=== PATIENT | male | born 1945 | race Caucasian/White ===

== ENCOUNTER → 2022-11-08 13:30 | Outpatient (BNVA) | payer MEDICARE, MEDICAID, SELFPAY | PROVIDERS: Visit Provider Nurse Practitioner Family | DX: R39.12 Poor urinary stream (principal); R39.14 Feeling of incomplete bladder emptying; R39.9 Unspecified symptoms and signs involving the genitourinary system; Z79.899 Other long term (current) drug therapy | CPT/HCPCS: 51798; 99202 ==

== ENCOUNTER 2022-11-18 13:43 | Outpatient (REF) | payer MEDICARE, MEDICAID, SELFPAY | END 2022-11-18 13:44 | disposition home or self-care (01) | LOC: HO.HMGCLDS 13:43 | PROVIDERS: PCP Nurse Practitioner Community Health; Visit Provider Nurse Practitioner Family | DX: Z12.5 Encounter for screening for malignant neoplasm of prostate (principal); N40.0 Benign prostatic hyperplasia without lower urinary tract symptoms | CPT/HCPCS: 36415; 84153 ==

== ENCOUNTER 2023-01-06 13:48 | Outpatient (REF) | payer MEDICARE, MEDICAID, SELFPAY ==
--- NOTE | ~2023-01-06 | US_ITS ---
EXAMINATION: US PELVIS LIMITED (BLADDER) CLINICAL INFORMATION: Feeling of incomplete bladder emptying. COMPARISON: None available. TECHNIQUE: Real-time imaging of the bladder. FINDINGS: BLADDER: Well distended and normal. Prevoid bladder volume is 237 mL. Postvoid bladder volume was not obtained. OTHER: Prostate dimensions are 3.7 x 3.6 x 3.8 cm (volume 25.9 mL). US/US bladder IMPRESSION: Unremarkable examination.
== END 2023-01-06 13:49 | disposition home or self-care (01) ==
LOC: HO.HMGCX 13:48
PROVIDERS: PCP Nurse Practitioner Community Health; Visit Provider Nurse Practitioner Family
DX: Z13.89 Encounter for screening for other disorder (principal)
CPT/HCPCS: 76857

== ENCOUNTER 2023-01-06 14:40 | Outpatient (AMB) | payer MEDICARE, MEDICAID, SELFPAY ==
[2023-01-06 14:41] VITALS: BP 160/110; PULSE 64; TEMP 36.2; O2SAT 95
--- NOTE | 2023-01-06 14:41 | MHC.OFFWIV ---
Intake Vital Signs 01/06/23 14:41 BP 160/110 H Blood Pressure Location Lt brachial Position Sitting Pulse 64 Pulse Source Pulse Oximeter Temp 97.2 F Pulse Oximetry (%) 95 Oxygen Delivery Method Room Air Intake Visit Reasons: EP, Weakness Intake Note: Patient here for weakness. Allergies No Known Allergies Allergy (Verified 11/08/22 14:16) HPI HPI Comments History of Present Illness Details This is a 77-year-old male who presents to the office today for sick visit. Patient was at ultrasound when he felt as though he was going to have diarrhea. He went to the bathroom and he suddenly became diaphoretic, dizzy, and lightheaded. He was brought to the walk-in clinic for further evaluation. Upon my evaluation, patient is nauseous and actively vomiting. He reports having off and on chest pain and shortness of breath. Patient has positive exposure to COVID. 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 Essential hypertension Gastroesophageal reflux disease Hyperlipidemia Idiopathic gout Impairment of cognitive function Stage 2 chronic kidney disease Type 1 diabetes mellitus without complication, with long-term current use of insulin Vitamin B12 deficiency Surgical History History of cholecystectomy History of prostate surgery Review of Systems Const All systems reviewed & are unremarkable except as noted in HPI and below Reports no additional complaints Eyes Reports no additional complaints ENT Reports no additional complaints Card Reports no additional complaints Resp Reports no additional complaints GI Reports no additional complaints Reports no additional complaints Musc Reports no additional complaints Skin/Breast Reports system reviewed and no additional complaints, except as documented Neuro Reports no additional complaints Psych Reports no additional complaints Endo Reports no additional complaints Blaine/Lymph Reports no additional complaints Aller/Immun Reports no additional complaints Physical Exam Vital Signs: Last Vital Signs Temp 97.2 F 01/06/23 14:41 Pulse 64 01/06/23 14:41 BP 160/110 H 01/06/23 14:41 Pulse Ox 95 01/06/23 14:41 Oxygen Delivery Method Room Air 01/06/23 14:41 Const General: cooperative, well developed, acute distress, diaphoretic and ill appearing HEENT Head: Yes normal to inspection Ears: hearing grossly normal bilaterally General nose exam: Normal external nose present Face and sinus: Yes normal facial exam Mouth: Normal oral and palatal mucosa present Eyes General: appearance normal, both eyes and all related structures Pupils: Equal, round and reactive pupils present EOM: EOMs intact bilaterally Resp Effort & Inspection: normal respiratory effort and no respiratory distress Auscultation: clear to auscultation bilaterally Cardio Rate: regular rate Rhythm: regular rhythm Heart sounds: no gallops, no murmurs and no rubs Peripheral pulses: Peripheral pulses 2+ throughout GI Other: Patient nauseous and actively vomiting but abdomen is soft, nontender, and nondistended. Inspection: No distended Palpation (GI): Soft to palpation and nontender Auscultation: normal bowel sounds Skin General skin exam: no rashes or lesions noted Neuro Other: Patient appears to have some slurred/garbled speech, unclear if this is patient's baseline. Cranial nerves: Yes CN's II-XII intact bilaterally and Yes Equal, round and reactive pupils present Gait exam (Neuro): Normal gait present Motor exam (neuro): 5/5 motor strength present throughout Extrem General: Yes normal to inspection, Yes full ROM and Yes no clubbing, cyanosis or edema Psych Appearance: grossly normal Mental Status: mental status grossly normal Assessment & Plan Assessment & Plan (1) Weakness: Code(s): R53.1 - Weakness Plan: This is a 77-year-old male who was brought to the walk-in clinic from [facility] due to lightheadedness/dizziness, diaphoresis, and presyncope. Upon arrival to the walk-in clinic, he is nauseous and actively vomiting. Patient is extremely ill-appearing, pale, and diaphoretic. He reports on and off chest pain. He also appears to have some slurred speech but unable to tell if this is patient's baseline. Unable to obtain EKG as patient is unable to lay down. Differential diagnosis is broad but includes ACS versus CVA versus COVID/flu versus viral illness versus sepsis/infection. Ambulance was called to take patient to the emergency room for further evaluation and management. Coding Level of Care Code Est Pt Level 3 (87816) Diagnoses Weakness R53.1
== END 2023-01-06 15:09 | disposition home or self-care (01) ==
PROVIDERS: PCP Nurse Practitioner Community Health; Visit Provider Physician Assistant Medical
DX: R53.1 Weakness (principal)
CPT/HCPCS: 99213

== ENCOUNTER 2023-01-06 15:19 | Emergency (ER) | payer MEDICARE, MEDICAID, SELFPAY ==
--- NOTE | 2023-01-06 | ECG_ITS ---
Test Reason : HYPERTENSION Blood Pressure : / mmHG Vent. Rate : 057 BPM Atrial Rate : 057 BPM P-R Int : 212 ms QRS Dur : 112 ms QT Int : 488 ms P-R-T Axes : -10 080 033 degrees QTc Int : 474 ms Sinus bradycardia with 1st degree A-V block Incomplete left bundle branch block Borderline ECG No previous ECGs available Referred By: Generic ED Physician Electronically Signed By:BLANCA CRAIG
--- NOTE | ~2023-01-06 | XR_ITS ---
EXAMINATION: XR CHEST CLINICAL INFORMATION: Shortness of breath COMPARISON: None available. TECHNIQUE: Frontal view of the chest was obtained. FINDINGS: Evidence of previous cardiac surgery. Size mildly enlarged. Expiratory technique accentuates lung markings. No overt CHF allowing for technique. No major zones of airspace disease or focal infiltrate. No pleural disease or ectopic air. XR/XR chest 1V IMPRESSION: No acute pulmonary disease. Mild cardiomegaly.
[2023-01-06 15:27] VITALS: BP 186/80; BP 220/110; PULSE 57; PULSE 58; RESP 14; TEMP 36.6; O2SAT 95; O2SAT 96; BMI 27.1
[2023-01-06 15:46] LABS: Glucose, Whole Blood 130 mg/dL (60-115)
--- NOTE | 2023-01-06 15:47 | ED_ITS ---
HPI - Syncope General Chief Complaint: Altered Mental Status Stated Complaint: vomiting,slight slurred speech,Abd pain, Time Seen by Provider: 01/06/23 15:37 Source: patient Mode of arrival: EMS Limitations: no limitations History of Present Illness HPI narrative: 77-year-old male with history of anxiety, BPH with lower urinary tract symptoms, constipation, coronary artery disease status post coronary bypass gra ft, angina, developmental disability, diabetes, hypertension, GERD, hyperlipidemia, gout, stage 2 chronic kidney disease, vitamin B12 deficiency who presents emergency department for evaluation of near syncopal episode that occurred while he was getting a bladder scan. The patient states that he has difficulty urinating any went to his doctor's office for a bladder scan. He states that he had prostate surgery and since that time he has had difficulty urinating. He states that during the scan while they were pushing on his bladder he felt lightheaded , dizzy and felt as he was going to have diarrhea. He states that he went to the bathroom, his lightheadedness and dizziness felt worse. He states he had nausea had 1 episode of vomiting. I did review the walk-in clinic note which concurs with the patient's description of events. Apparently after the patient became diaphoretic dizzy an d lightheaded after using the bathroom, he was brought over to the walk-in clinic side of the office for evaluation. While he was being evaluated, the patient had nausea was actively vomiting. Reported having chest pain shortness of breath. He also reported being exposed to COVID positive patient. Related Data Home Medications Medication Instructions Recorded Confirmed amlodipine 2.5 mg tablet 2.5 mg PO [facility] 11/08/22 atorvastatin 40 mg tablet 40 mg PO DAILY 11/08/22 cyanocobalamin (vitamin B-12) 1,000 mcg PO DAILY 11/08/22 1,000 mcg tablet (Vitamin B-12) escitalopram oxalate 20 mg tablet 20 mg PO DAILY 11/08/22 finasteride 5 mg tablet 5 mg PO DAILY 11/08/22 isosorbide mononitrate 120 mg 120 mg PO DAILY 11/08/22 tablet,extended release 24 hr lisinopril 40 mg tablet 40 mg PO DAILY 11/08/22 metformin 500 mg tablet 500 mg PO BID 11/08/22 metoprolol succinate 200 mg 200 mg PO DAILY 11/08/22 tablet,extended release 24 hr nitroglycerin 0.4 mg sublingual 0.4 mg sublingual DIRECTED 11/08/22 tablet angina omeprazole 40 mg capsule,delayed 40 mg PO DAILY 11/08/22 release Previous Rx's Medication Instructions Recorded alfuzosin 10 mg tablet,extended 10 mg PO BEDTIME 30 days #30 tabs 12/08/22 release 24 hr Allergies Allergy/AdvReac Type Severity Reaction Status Date / Time No Known Allergies Allergy Verified 11/08/22 14:16 Review of Systems Review of Systems: Yes all other systems are reviewed and are negative [facility] Past Medical History Medical History Anxiety Benign prostatic hyperplasia with lower urinary tract symptoms Constipation 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 Essential hypertension Gastroesophageal reflux disease Hyperlipidemia Idiopathic gout Impairment of cognitive function Stage 2 chronic kidney disease Type 1 diabetes mellitus without complication, with long-term current use of insulin Vitamin B12 deficiency Surgical History History of cholecystectomy History of prostate surgery Social History Social History Alcohol intake: never Smoked in Last 30 Days: No Use of substances other than those prescribed or required for medical reasons: No Advance Directives: No Advance Directives Information Provided: No Physical Exam Vital Signs: Vital Signs: Last Vital Signs Temp 98 F 01/06/23 16:38 Pulse 55 01/06/23 17:18 Resp 16 01/06/23 17:18 BP 151/72 H 01/06/23 17:18 Pulse Ox 95 01/06/23 17:18 O2 Del Method Room Air 01/06/23 17:18 BMI result Body Mass Index 27.1 Medications Administered Discontinued Medications Generic Name Dose Route Start Last Admin Trade Name Freq PRN Reason Stop Dose Admin Lidocaine HCl 10 ml 01/06/23 17:07 01/06/23 17:21 Lidocaine Hcl 2 % Urojet 10 Ml Jel.Pf.Maryjane TOPICAL 01/06/23 17:08 10 ml ONCE ONE Administration Medical Decision Making Medical Decision Making MDM Narrative: 77-year-old male with history of anxiety, BPH with lower urinary tract symptoms, constipation, coronary artery disease status post coronary bypass graft, angina, developmental disability, diabetes, hypertension, GERD, hyperlipidemia, gout, stage 2 chronic kidney disease, vitamin B12 deficiency who presents emergency department for evaluation of near syncopal episode, chest pain, shortness of breath, diaphoresis, nausea and vomit that occurred while he was having his bladder scan at his doctor's office. Vital signs revealed elevated BP 186/80, bradycardia heart rate 57, otherwise unremarkable. Physical examination was normal. I ordered a CBC, CMP, COVID-19, PT/INR, troponin, urinalysis, chest x-ray one view, EKG, bladder scan. 16:11: Patient's bladder scan revealed 584 cc of urine. Patient will attempt a voiding we will check postvoid residual and if needed , Mejias catheter will be inserted. 17:48: Mejias catheter was inserted the patient drained approximately 500 cc of yellow urine. The patient most likely had a near syncopal episode secondary to putting stress on his bladder from the bladder scan done in the office. Patient's laboratory evaluation did reveal an elevated WBC . Patient's urinalysis was significant for blood but not a urinary tract infection. Patient is on finasteride. At this time, I think that the patient can be discharged home with a Mejias catheter with follow-up with our on-call urologist. Differential Diagnosis Differential Diagnoses: The differential diagnosis associated with the presentation includes Differential diagnosis includes but is not limited to vasovagal syncope, cardiac arrhythmia, myocardial infarction, myocardial ischemia, urinary retention, urinary tract infection, COVID-19 infection, pneumonia Admission/Observation Consideration of admission/observation: Escalation of care including admission/observation considered Lab Data MDM Lab Attestation statement: I reviewed the patient's lab results. My interpretation patient's laboratory evaluation is as follows: WBC elevated 12,400, anemia with an H&H of of 13.8 and 39.4. PT/INR were normal. Glucose elevated 141. High sensitive troponin I was detectable at 18 but not elevated. Urinalysis revealed 2+ blood, negative nitrates, trace leukocyte esterase. Urine microscopic revealed greater than 20 RBCs, 0-5 WBCs, 0-2 squamous cells no bacteria-no evidence for urinary tract infection 01/06/23 16:27 01/06/23 16:27 Labs: Lab Results 01/06/23 01/06/23 01/06/23 Range/Units 15:31 16:27 16:27 WBC 12.4 H (4.8-10.8) X10*3/uL RBC 4.51 L (4.60-5.80) X10*6/uL Hgb 13.8 L (14.0-18.0) g/dl Hct 39.4 L (42.0-52.0) % MCV 87.4 (80.0-98.0) fL MCH 30.6 (27.0-33.0) pg MCHC 35.0 (31.0-36.0) g/dl RDW 13.1 (11.0-16.0) % Plt Count 200 (160-400) X10*3/uL MPV 11.0 (9.4-12.4) fL Immature Gran % (Auto) 0.6 H (0.0-0.4) % Neut % (Auto) 80.5 H (45-73) % Lymph % (Auto) 10.1 L (20-40) % [place] % (Auto) 6.0 (2-11) % Eos % (Auto) 2.3 (0-4) % Baso % (Auto) 0.5 (0-2) % Lymph # (Auto) 1.3 (1.2-4.9) X10*3/uL [place] # (Auto) 0.7 (0.1-1.2) X10*3/uL Eos # (Auto) 0.3 (0.0-0.4) X10*3/uL Baso # (Auto) 0.1 (0.0-0.2) X10*3/uL Abs Immat Gran (auto) 0.08 H (0.00-0.03) X10*3/uL Absolute Neuts (auto) 10.0 H (2.0-8.3) x10*3/uL Absolute Nucleated RBC 0.000 (0.0-0.012) X10*3/uL Nucleated RBC % (auto) 0.0 (0.0-0.2) /100WBC PT 11.8 (11.1-13.3) SEC INR 1.0 (0.9-1.1) Sodium (135-145) mmol/L Potassium (3.3-5.1) mmol/L Chloride (96-108) mmol/L Carbon Dioxide (22-29) mmol/L Anion Gap (12-20) BUN (9-16) mg/dL Creatinine (0.5-1.4) mg/dL Estim Creat Clear Calc Estimated GFR POC Glucose 130 H (60-115) mg/dL Random Glucose (60-115) mg/dL Calcium (8.4-10.2) mg/dL Total Bilirubin (0.0-1.0) mg/dL AST (5-37) U/L ALT (0-40) U/L Alkaline Phosphatase (39-117) U/L Troponin I High Sens (<3.5-35.0) ng/L Total Protein (6.5-8.0) g/dL Albumin (3.5-5.0) g/dL Urine Color Urine Appearance Urine pH (5.0-9.0) Ur Specific [place] (1.005-1.025) Urine Protein (Neg-Trace) mg/dL Urine Glucose (UA) (Negative) mg/dL Urine Ketones (Negative) mg/dL Urine Blood (Negative) Urine Nitrite (Negative) Ur Leukocyte Esterase (Negative) Urine RBC (0-2) /HPF Urine WBC (0-5) /HPF Ur Squamous Epith Cells (0-2) /HPF Urine Bacteria (None Seen) Hyaline Casts (0-2) /LPF COVID-19 (FRANCK) (Negative) COVID-19 Clin Com 01/06/23 01/06/23 01/06/23 Range/Units 16:27 16:27 16:27 WBC (4.8-10.8) X10*3/uL RBC (4.60-5.80) X10*6/uL Hgb (14.0-18.0) g/dl Hct (42.0-52.0) % MCV (80.0-98.0) fL MCH (27.0-33.0) pg MCHC (31.0-36.0) g/dl RDW (11.0-16.0) % Plt Count (160-400) X10*3/uL MPV (9.4-12.4) fL Immature Gran % (Auto) (0.0-0.4) % Neut % (Auto) (45-73) % Lymph % (Auto) (20-40) % [place] % (Auto) (2-11) % Eos % (Auto) (0-4) % Baso % (Auto) (0-2) % Lymph # (Auto) (1.2-4.9) X10*3/uL [place] # (Auto) (0.1-1.2) X10*3/uL Eos # (Auto) (0.0-0.4) X10*3/uL Baso # (Auto) (0.0-0.2) X10*3/uL Abs Immat Gran (auto) (0.00-0.03) X10*3/uL Absolute Neuts (auto) (2.0-8.3) x10*3/uL Absolute Nucleated RBC (0.0-0.012) X10*3/uL Nucleated RBC % (auto) (0.0-0.2) /100WBC PT (11.1-13.3) SEC INR (0.9-1.1) Sodium 137 (135-145) mmol/L Potassium 4.5 (3.3-5.1) mmol/L Chloride 100 (96-108) mmol/L Carbon Dioxide 28 (22-29) mmol/L Anion Gap 14 (12-20) BUN 16 (9-16) mg/dL Creatinine 1.15 (0.5-1.4) mg/dL Estim Creat Clear Calc 60.9 Estimated GFR > 60 POC Glucose (60-115) mg/dL Random Glucose 141 H (60-115) mg/dL Calcium 10.2 (8.4-10.2) mg/dL Total Bilirubin 0.7 (0.0-1.0) mg/dL AST 14 (5-37) U/L ALT 20 (0-40) U/L Alkaline Phosphatase 71 (39-117) U/L Troponin I High Sens 18.0 (<3.5-35.0) ng/L Total Protein 7.8 (6.5-8.0) g/dL Albumin 4.5 (3.5-5.0) g/dL Urine Color Urine Appearance Urine pH (5.0-9.0) Ur Specific [place] (1.005-1.025) Urine Protein (Neg-Trace) mg/dL Urine Glucose (UA) (Negative) mg/dL Urine Ketones (Negative) mg/dL Urine Blood (Negative) Urine Nitrite (Negative) Ur Leukocyte Esterase (Negative) Urine RBC (0-2) /HPF Urine WBC (0-5) /HPF Ur Squamous Epith Cells (0-2) /HPF Urine Bacteria (None Seen) Hyaline Casts (0-2) /LPF COVID-19 (FRANCK) Negative (Negative) COVID-19 Clin Com See Note 01/06/23 Range/Units 16:27 WBC (4.8-10.8) X10*3/uL RBC (4.60-5.80) X10*6/uL Hgb (14.0-18.0) g/dl Hct (42.0-52.0) % MCV (80.0-98.0) fL MCH (27.0-33.0) pg MCHC (31.0-36.0) g/dl RDW (11.0-16.0) % Plt Count (160-400) X10*3/uL MPV (9.4-12.4) fL Immature Gran % (Auto) (0.0-0.4) % Neut % (Auto) (45-73) % Lymph % (Auto) (20-40) % [place] % (Auto) (2-11) % Eos % (Auto) (0-4) % Baso % (Auto) (0-2) % Lymph # (Auto) (1.2-4.9) X10*3/uL [place] # (Auto) (0.1-1.2) X10*3/uL Eos # (Auto) (0.0-0.4) X10*3/uL Baso # (Auto) (0.0-0.2) X10*3/uL Abs Immat Gran (auto) (0.00-0.03) X10*3/uL Absolute Neuts (auto) (2.0-8.3) x10*3/uL Absolute Nucleated RBC (0.0-0.012) X10*3/uL Nucleated RBC % (auto) (0.0-0.2) /100WBC PT (11.1-13.3) SEC INR (0.9-1.1) Sodium (135-145) mmol/L Potassium (3.3-5.1) mmol/L Chloride (96-108) mmol/L Carbon Dioxide (22-29) mmol/L Anion Gap (12-20) BUN (9-16) mg/dL Creatinine (0.5-1.4) mg/dL Estim Creat Clear Calc Estimated GFR POC Glucose (60-115) mg/dL Random Glucose (60-115) mg/dL Calcium (8.4-10.2) mg/dL Total Bilirubin (0.0-1.0) mg/dL AST (5-37) U/L ALT (0-40) U/L Alkaline Phosphatase (39-117) U/L Troponin I High Sens (<3.5-35.0) ng/L Total Protein (6.5-8.0) g/dL Albumin (3.5-5.0) g/dL Urine Color Yellow Urine Appearance Clear Urine pH 7.0 (5.0-9.0) Ur Specific [place] 1.010 (1.005-1.025) Urine Protein Trace (Neg-Trace) mg/dL Urine Glucose (UA) Negative (Negative) mg/dL Urine Ketones Negative (Negative) mg/dL Urine Blood Moderate (2+) H (Negative) Urine Nitrite Negative (Negative) Ur Leukocyte Esterase Trace H (Negative) Urine RBC >20 H (0-2) /HPF Urine WBC 0-5 (0-5) /HPF Ur Squamous Epith Cells 0-2 (0-2) /HPF Urine Bacteria None Seen (None Seen) Hyaline Casts 0-2 (0-2) /LPF COVID-19 ([facility]ANCK) (Negative) COVID-19 Clin Com Independent Interpretation I performed an independent interpretation of an: EKG Interpretation: My independent interpretation patient's 12 EKG done at 16:11 hours is as follows: Sinus bradycardia with a rate of 57 with a first-degree AV block with MO interval of 212 milliseconds, Q-wave in the 3 an EPS-these are small, Q-wave in V1, incomplete left bundle-branch block. My independent interpretation the patient's chest x-ray is as follows: No acute disease. Radiology Impression Discussion of test interpretation with radiology: I have reviewed the radiologist's reading. Radiologist Impression: XR chest 1V IMPRESSION: No acute pulmonary disease. Mild cardiomegaly. Dictated By:Ron Mcgrath MD External Record Review External record reviewed: Office record (Urgent care note) Discharge Plan Discharge Clinical Impression: Near syncope, Acute urinary retention, Nausea & vomiting Patient Disposition: Home, Self-Care Additional Instructions: Your bladder was full, you had greater than 500 cc of urine in her bladder on the bladder scan. The Mejias catheter drained yellow urine, the urine test did not reveal any evidence for infection at this time. Your urine will be sent for a culture and if you grow bacteria out of your urine that your doctor/urologist will need to determine if you need antibiotics. I am sending you home with a Mejias catheter in place, you need to follow-up with our urologist in 4-7 days for re-evaluation and to see if the Mejias catheter can be removed. Your symptoms at the urgent care office were probably caused by too much pressure on your bladder from the bladder scan causing you to have your vasovagal syncope (you almost fainted) Continue taking medications as prescribed by your doctor Follow the Mejias catheter instructions. Follow-up with our on-call urologist in 4-7 days to see if the Mejias catheter can be removed. Please return to the emergency department if your symptoms get worse or if you develop any symptoms that are concerning to you. Prescriptions: No Action alfuzosin 10 mg tablet extended release 24 hr 10 mg PO BEDTIME 30 Days Qty: 30 1RF Rx Instructions: Take before bedtime amlodipine 2.5 mg tablet 2.5 mg PO QAM atorvastatin 40 mg tablet 40 mg PO DAILY cyanocobalamin (vitamin B-12) [Vitamin B-12] 1,000 mcg tablet 1,000 mcg PO DAILY escitalopram oxalate 20 mg tablet 20 mg PO DAILY finasteride 5 mg tablet 5 mg PO DAILY isosorbide mononitrate 120 mg tablet extended release 24 hr 120 mg PO DAILY lisinopril 40 mg tablet 40 mg PO DAILY metformin 500 mg tablet 500 mg PO BID metoprolol succinate 200 mg tablet extended release 24 hr 200 mg PO DAILY nitroglycerin 0.4 mg tablet, sublingual 0.4 mg sublingual DIRECTED omeprazole 40 mg capsule,delayed release(DR/EC) 40 mg PO DAILY Referrals: Donovan Tellez MD [Physician] - 1 week (Urinary retention, Mejias catheter placed in ED)
--- NOTE | 2023-01-06 16:09 | PC.NURSE ---
Carole- sister [phone]
[2023-01-06 16:30] VITALS: BP 170/82; PULSE 56
[2023-01-06 16:32] VITALS: BP 146/74; PULSE 57
[2023-01-06 16:32] LABS: MANUAL DIFF FLAG NO
[2023-01-06 16:33] VITALS: BP 145/82; PULSE 57
[2023-01-06 16:38] VITALS: BP 170/82; PULSE 56; RESP 20; TEMP 36.6; O2SAT 96
[2023-01-06 16:40] LABS: Appearance Urine Clear; Color Urine Yellow; Glucose Urine UA Negative (Negative); Leukocyte Esterase Urine Trace (Negative); Nitrite Urine Negative (Negative); UMIC TRIGGER UACC YES; Urine Blood Moderate (2+) (Negative); Urine Ketones Negative (Negative); Urine Protein Trace mg/dL (Neg-Trace)
[2023-01-06 16:43] LABS: Bacteria Urine None Seen (None Seen); Hyaline Casts Urine 0-2 /LPF (0-2); RBC Urine >20 /HPF (0-2); Squamous Epithelial Cell Urine 0-2 /HPF (0-2); WBC Urine 0-5 /HPF (0-5)
[2023-01-06 16:47] LABS: Basophils Absolute Auto 0.1 X10*3/uL (0.0-0.2); Basophils Percent Auto 0.5 % (0-2); Eosinophils Absolute Auto 0.3 X10*3/uL (0.0-0.4); Eosinophils Percent Auto 2.3 % (0-4); Hematocrit 39.4 % (42.0-52.0); Hemoglobin 13.8 g/dl (14.0-18.0); Imm Gran Abs Auto 0.08 X10*3/uL (0.00-0.03); Imm Gran Pct Auto 0.6 % (0.0-0.4); Lymphocytes Absolute Auto 1.3 X10*3/uL (1.2-4.9); Lymphocytes Percent Auto 10.1 % (20-40); Mean Corpuscular Hemoglobin 30.6 pg (27.0-33.0); Mean Corpuscular Volume 87.4 fL (80.0-98.0); Monocytes Absolute Auto 0.7 X10*3/uL (0.1-1.2); Neutrophils Percent Auto 80.5 % (45-73); Platelet Count 200 X10*3/uL (160-400); Red Blood Count 4.51 X10*6/uL (4.60-5.80); Red Cell Distribution Width 13.1 % (11.0-16.0); White Blood Count 12.4 X10*3/uL (4.8-10.8)
[2023-01-06 16:49] LABS: COVID-19 Test Negative (Negative); IDNOW Serial# 08D9AD1C
--- OUTSIDE RECORDS SUMMARY | 2023-01-06 16:50 | XMS_ITS | Continuity of Care Document ---
Author Name Unknown Organization [facility] Address [address] [address]- Care Team Providers Care Wool Washer Name Role Phone Radha SCOTT, Mendez Mercedes Primary Care Physician [phone] [place] [facility]02[place] - 01/01/21 [facility] [address] [address]- Attending Physician: Mary Lee Admitting Physician: Admtr [id number] Referring Physician: Admtr, Ar8 Allergies, Adverse Reactions, Alerts No Known Medication Allergies
--- OUTSIDE RECORDS SUMMARY | 2023-01-06 16:50 | XMS_ITS | Continuity of Care Document ---
Author Name Unknown Organization [facility] Address [address] [place] [id number]- Care Team Providers Care Loader [employer] Dies Name Role Phone Not on Staff, PCP Primary Care Physician Unavail able Encounter [facility] Date(s): 05/04/20 - 06/03/[address] [address]-
--- OUTSIDE RECORDS SUMMARY | 2023-01-06 16:50 | XMS_ITS | Continuity of Care Document ---
Author Name Unknown Organization [facility] Address [address] [place] [id number]- Care Team Providers Care Tension Worker Name Role Phone Radha SCOTT, Mendez Mercedes Primary Care Physician Encounter [facility] R [id number] Date(s): 07/13/20 - 07/20/[address] [address]- Attending Physician: Jacky Finnegan MD Admitting Physician: Jacky Finnegan MD Referring Physician: Jacky Finnegan MD Allergies, Adverse Reactions, Alerts No Known Medication Allergies
--- OUTSIDE RECORDS SUMMARY | 2023-01-06 16:50 | XMS_ITS | Continuity of Care Document ---
Author Name Unknown Organization [facility] Address [address] [address]- Care Team Providers Care Rifle Case Repairer Name Role Phone Radha SCOTT, Mendez Mercedes Primary Care Physician Encounter [facility] Date(s): 11/03/20 - 11/10/20 [facility] [address] [address]- Attending Physician: Jacky Finnegan MD Admitting Physician: Jacky Finnegan MD Referring Physician: Mendez Garcia NP Allergies, Adverse Reactions, Alerts No Known Medication Allergies Medications No Known Medications Vital Signs Most recent to oldest [Reference Range]: 1 Weight 97 kg (11/03/20 2:07 PM) Oxygen Saturation [94-100 %] 100 % (11/03/20 2:07 PM) Pulse Rate [55-90 bpm] 59 bpm (11/03/20 2:07 PM) Blood Pressure [90-138/55-84 mm Hg] 151/ 71mm Hg *H* (11/03/20 2:07 PM) Mode of Delivery (Oxygen) Room air (11/03/20 2:07 PM) Blood pressure sites Arm, left (11/03/20 2:07 PM) Weight Obtained Via Standing scale (11/03/20 2:07 PM)
--- OUTSIDE RECORDS SUMMARY | 2023-01-06 16:50 | XMS_ITS | Continuity of Care Document ---
Author Name Unknown Organization [facility] Address [address] [address]- Care Team Providers Care Seed Analyst Name Role Phone Radha SCOTT, Mendez Mercedes Primary Care Physician [phone] En[place] [facility] [place] [id number] Date(s): 08/26/20 - 09/02/20 [facility] [address] [address]- Attending Physician: Jacky Finnegan MD Admitting Physician: Jacky Finnegan MD Referring Physician: Mendez Garcia NP Allergies, Adverse Reactions, Alerts No Known Medication Allergies Medications No Known Medications Vital Signs Most recent to oldest [Reference Range]: 1 Weight 96 kg (08/26/20 11:44 AM) Oxygen Saturation [94-100 %] 98 % (08/26/20 11:44 AM) Pulse Rate [55-90 bpm] 60 bpm (08/26/20 11:44 AM) Blood Pressure [90-138/55-84 mm Hg] 160/ 80mm Hg *H* (08/26/20 11:44 AM) Mode of Delivery (Oxygen) Room air (08/26/20 11:44 AM) Blood pressure sites Arm, left (08/26/20 11:44 AM) Weight Obtained Via Standing scale (08/26/20 11:44 AM)
--- OUTSIDE RECORDS SUMMARY | 2023-01-06 16:50 | XMS_ITS | Continuity of Care Document ---
Author Name Unknown Organization [facility] Address [address] [address]- Care Team Providers Care Utility Division Project Manager Name Role Phone Radha SCOTT, Mendez Mercedes Primary Care Physician Encounter [facility] [place] Date(s): 07/13/20 - 08/12/20 [id number] [address]- Attending Physician: Mary Lee Admitting Physician: Admtr Ar8 Referring Physician: Admtr, Ar8 Allergies, Adverse Reactions, Alerts No Known Medication Allergies
--- OUTSIDE RECORDS SUMMARY | 2023-01-06 16:50 | XMS_ITS | Continuity of Care Document ---
Author Name Unknown Organization [facility] Address [address] [place] [id number]- Care Team Providers Care Mason Apprentice Name Role Phone Radha SCOTT, Mendez Mercedes Primary Care Physician Encounter [facility] [place] ACCT R [id number] Date(s): 12/02/20 - 01/01/21 [facility] [address] [address]- Attending Physician: Mayr Lee Admitting Physician: Admtr Ar8 Referring Physician: Admtr, Ar8 Allergies, Adverse Reactions, Alerts No Known Medication Allergies
--- OUTSIDE RECORDS SUMMARY | 2023-01-06 16:50 | XMS_ITS | Continuity of Care Document ---
Author Name Unknown Organization [facility] Address [address] [place] [address]- Care Team Providers Care Camp Program Director Name Role Phone Radha SCOTT, Mendez Mercedes Primary Care Physician [place] [facility] [place]02/20 - 12/09/[address] [address]- Attending Physician: Jacky Finnegan MD Admitting Physician: Jacky Finnegan MD Referring Physician: Jacky Finnegan MD Allergies, Adverse Reactions, Alerts No Known Medication Allergies
--- OUTSIDE RECORDS SUMMARY | 2023-01-06 16:50 | XMS_ITS | Continuity of Care Document ---
Author Name Unknown Organization [facility] Address [address] [address]- Care Team Providers Care Fuel Management Handler Name Role Phone Radha SCOTT, Mendez Mercedes Primary Care Physician [phone] Encounter [facility] [place] [place] Date(s): 12/02/20 - 12/09/20 [facility] [address] [address]- Attending Physician: Jacky Finnegan MD Admitting Physician: Jacky Finnegan MD Referring Physician: Mendez Garcia NP Allergies, Adverse Reactions, Alerts No Known Medication Allergies Vital Signs Most recent to oldest [Reference Range]: 1 2 Weight 97.1 kg (12/02/20 4:18 PM) Oxygen Saturation [94-100 %] 96 % (12/02/20 4:18 PM) Pulse Rate [55-90 bpm] 69 bpm (12/02/20 4:18 PM) Blood Pressure [90-138/55-84 mm Hg] 159/ 81mm Hg *H* (12/02/20 4:19 PM) 167/85mm Hg *H* (12/02/20 4:18 PM) Mode of Delivery (Oxygen) Room air (12/02/20 4:18 PM) Blood pressure sites Arm, left (12/02/20 4:19 PM) Weight Obtained Via Standing scale (12/02/20 4:18 PM)
--- OUTSIDE RECORDS SUMMARY | 2023-01-06 16:50 | XMS_ITS | Continuity of Care Document ---
Author Name Unknown Organization [facility] Address [address] [place] [address]- Care Team Providers Care Package Center Supervisor Name Role Phone Radha SCOTT, Mendez Mercedes Primary Care Physician [phone] Encounter [facility] [place] ACCT R [id number] Date(s): 11/18/20 - 11/25/[address] [address]- Attending Physician: Jacky Finnegan MD Admitting Physician: Jacky Finnegan MD Referring Physician: Jacky Finnegan MD Allergies, Adverse Reactions, Alerts No Known Medication Allergies
[2023-01-06 16:52] LABS: Alanine Aminotransferase 20 U/L (0-40); Albumin Level 4.5 g/dL (3.5-5.0); Alkaline Phosphatase 71 U/L (39-117); Anion Gap 14 (12-20); Aspartate Amino Transferase 14 U/L (5-37); Bilirubin Total 0.7 mg/dL (0.0-1.0); Blood Urea Nitrogen 16 mg/dL (9-16); Calcium 10.2 mg/dL (8.4-10.2); Carbon Dioxide 28 mmol/L (22-29); Chloride 100 mmol/L (96-108); Creatinine Clr Calc Pharmacy 60.9; Estimated Glomerular Filt Rate > 60; Glucose Random 141 mg/dL (60-115); Potassium 4.5 mmol/L (3.3-5.1); Sodium 137 mmol/L (135-145); Total Protein 7.8 g/dL (6.5-8.0)
[2023-01-06 16:56] LABS: Prothrombin Time 11.8 SEC (11.1-13.3)
[2023-01-06 17:18] VITALS: BP 151/72; PULSE 55; RESP 16; O2SAT 95
[2023-01-06] MEDS: Lidocaine HCl 2 % Urojet 10 ML JEL.PF.APP TOPICAL (17:21)
--- NOTE | 2023-01-06 17:22 | PC.NURSE ---
unable to obtain murdock catheter at first attempt. MD Wells informed and request made for uro-jet. MD placed order. this RN used a 16Fr coude tip catheter and was able to place the murdock successfully. pt with some bloody output around meatus of penis. aware. pt immedistely had 800cc clear yellow uriine output with some small clots of blood. 30cc placed in balloon.
--- NOTE | 2023-01-06 17:26 | PC.NURSE ---
PCT Alcides bladder scanned pt for 584. pt able to urinate only approx 20cc of urine. informed MD Wells and murdock cath ordered and placed by this RN
--- NOTE | 2023-01-06 18:11 | PC.NURSE ---
pt changed over to leg bag and educated on use
--- NOTE | 2023-01-06 18:26 | PC.NURSE ---
called pts brother to come pick him up. d/c pt to waiting room to await brothers arrival
--- NOTE | 2023-01-09 12:23 | MHC.CM.PN ---
Late entry: received call from [facility]: they are unable to accept pt onto service d/t lack of dx for pt's urinary retention with subsequent need for a murdock catheter. Reviewed urology appt f/u this Monday w/[facility] - no change in acceptance. Call placed to pt's sister Carole: she states pt is unable to empty murdock d/c cognitive impairment: pt lives alone and has fire management technician through [facility] and an RN who comes once weekly. Carole contacted agency and they stated to her that they are not certified to care for murdock catheters. Carole states pt can maintain urinary hygiene with [employer] prompting but would not be able to empty the collection bag. CM offered to contact [facility] to explain that pt only requires assistance w/ emptying bag and not hygiene care - Carole states she will call and explain. Instructed Carole to call [facility] CM should she require additional assistance.
== END 2023-01-06 18:26 | disposition home or self-care (01) ==
PROVIDERS: Emergency Provider Emergency Medicine Emergency Medical Services; PCP Nurse Practitioner Community Health
DX: R33.9 Retention of urine, unspecified (principal); R30.0 Dysuria; I10 Essential (primary) hypertension; R00.1 Bradycardia, unspecified; R06.02 Shortness of breath; R47.81 Slurred speech; R10.2 Pelvic and perineal pain; Z20.822 Contact with and (suspected) exposure to COVID-19; Z20.828 Contact with and (suspected) exposure to other viral communicable diseases; Z79.899 Other long term (current) drug therapy
CPT/HCPCS: 36415; 51702; 51798; 71045; 76857; 80053; 81001; 82947; 84484; 85025; 85610; 87635; 93005; 99284; 99285

== ENCOUNTER 2023-01-11 09:32 | Outpatient (AMB) | payer MEDICARE, MEDICAID, SELFPAY ==
--- NOTE | 2023-01-11 10:02 | MHC.OFFVIS ---
Intake Intake Visit Reasons: Voiding trial/cysto/US(set) Intake Note: Patient is present for Cystoscopy With Voiding Trial Urology Med: Alfuzosin, Finasteride Antibiotic Allergy: None Blood Thinner: None Pharmacy: [facility] Disposable Cystoscope used during Procedure LOT#:[id number] EXP: 10/06/2024 PVR: Allergies No Known Allergies Allergy (Verified 01/11/23 10:03) HPI HPI Comments History of Present Illness Details Jason is a pleasant male. He is accompanied by his brother. He seen for the following urologic conditions - neurogenic bladder Current indwelling Mejias Cystoscopy today with some recurrence of bilateral impingement and last dilated bladder Recommendation for GreenLight laser prostate revision +suprapubic tube placement Neurogenic bladder Progressive Longstanding history of developmental delay Prior TURP a number of years ago [facility] Medical History Anxiety Benign prostatic hyperplasia with lower urinary tract symptoms Constipation Coronary artery disease involving coronary bypass graft of [place] heart with angina pectoris Developmental disability Diabetic renal disease Essential hypertension Gastroesophageal reflux disease Hyperlipidemia Idiopathic gout Impairment of cognitive function Stage 2 chronic kidney disease Type 1 diabetes mellitus without complication, with long-term current use of insulin Vitamin B12 deficiency Surgical History History of cholecystectomy History of prostate surgery Social History Alcohol intake: never Review of Systems Const Denies chills and Denies fever(s) Card Reports no additional complaints and Denies syncope Resp Denies cough GI Denies abdominal pain and Denies heartburn Reports as per HPI and Denies change in libido Neuro Denies syncope Psych Denies change in libido Endo Denies change in libido Physical Exam Const General: cooperative, healthy appearing, comfortable and no acute distress Orientation/consciousness: patient oriented x3 HEENT Face and sinus: Yes normal facial exam Mouth: moist mucous membranes Neck Neck: Yes normal visual inspection, Yes full ROM and Yes trachea midline Chest Chest palpation & inspection: normal inspection of the chest Resp Effort & Inspection: normal respiratory effort, able to speak in complete sentences and no respiratory distress GI Inspection: Yes normal to inspection Back/Spine/Pelvis Cervical Spine: normal cervical lordosis Thoracic/Lumbar Spine: thoracic and lumbar spine normal to inspection Skin General skin exam: no rashes or lesions noted Neuro General: patient oriented x3, gait normal, tone normal and moves all extremities Extrem General: Yes normal to inspection and Yes capillary refill normal Office Procedures Bladder/Catheter Procedure Details: 120 mls sterile water instilled into bladder via 16 fr coude cath, cath removed, pt tolerated removal well. urinal given to empty bladder. MA to PVR. Voiding trial failed- per DR Mercedes 16 fr coude cath with 10 ml balloon replaced with flip vlave, pt able to teach back use of valve, pt to have SP tube procedure booked. 50378-Pzqfjsvvrg of Bladder 05629-Gsktnw Bladder Catheter Procedure code (CPT) selection complete Cystoscopy Consent Discussed risk and benefit or proposed procedure with the patient. Information consent for procedure given to the patient. Discussed technical aspects, risks, benefits and alternatives in full. Addressed all of the patient's questions and concerns regarding the procedure. The patient demonstrated knowledge and understanding. They wish to proceed with this procedure. Preparation The patient was prepped in the usual manner. A staff development coordinator rn was present and in the room. Genitalia was prepped with betadine solution in a sterile manner. Lidocaine Jelly 2% was placed into the urethra and 16Fr flexible Olympus cystoscope was inserted into the meatus after adequate lubrication. Procedure Meatus circumcised Urethra anterior posterior urethra normal Prostatic Urethra recurrent bilateral lateral lobe impingement Bladder examination with retroflexion of cystoscope Bladder Orifices normal shape and position Bladder Capacity large Trabeculations grade 2 Cellule Formation yes Diverticulum Formation - Mucosal Erythema - Bladder Tumor - 63896-Pfkjxnchnq DISPOSABLE SCOPE URO-G FLEXIBLE SCOPE Procedure code (CPT) selection complete Office Meds lidocaine HCl Performing Provider: Donovan Tellez MD Administered by: Melissa Matt RN on 01/11/23 10:41 Dose Route Admin Location Lot Number Expiration Date NDC Project Hire 10 mL intra-urethral nitrofurantoin monohyd/m-cryst 100 mg Performing Provider: Donovan Tellez MD Administered by: Melissa Matt RN on 01/11/23 10:41 Dose Route Admin Location Lot Number Expiration Date ND Project Hire 100 mg PO naproxen Performing Provider: Donovan Tellez MD Administered by: Melissa Matt RN on 01/11/23 10:41 Dose Route Admin Location Lot Number Expiration Date NDC Project Hire 500 mg PO Assessment & Plan Assessment & Plan (1) Neurogenic urinary bladder disorder: Code(s): N31.9 - Neuromuscular dysfunction of bladder, unspecified Plan Risks, benefits and alternatives to therapy were discussed. These include but are not limited to infection, bleeding, damage to local organs and tissues, need for further interventions. Anesthetic risks regarding cardiac arrhythmia, blood clots, and potential mortality were discussed. The patient understands the typical recovery time and the outpatient nature of the procedure. After consideration of these risks the patient gives full informed consent and they wish to move ahead with the procedure. Cystoscopy with GreenLight laser prostatectomy and suprapubic tube placement Orders: Orders AMB Cystoscopy 01/11/23 R39.14 - Feeling of incomplete bladder emptying AMB Bladder/Catheter Procedure 01/11/23 R39.14 - Feeling of incomplete bladder emptying Patient Instructions: Imaging studies, laboratory and physical exam results were discussed and reviewed in detail. No major barriers to patient understanding were identified. An opportunity to ask questions regarding the treatment plan was provided. All questions were answered. The patient expressed understanding and agreement with the above treatment plan. The patient is aware they should contact our office by phone for worsening of their current condition or the appearance of new urologic symptoms. Compliance is encouraged with any medications and followup testing that is ordered. It is a privilege to participate in the urologic care of your patient. If you have any questions or concerns regarding treatment for the above conditions, or other urologic issues, please do not hesitate to contact me. The office telephone contact is [phone]. This note is constructed using voice recognition software. While every effort has been made to ensure accuracy director of hospitality errors may have been included. Yours sincerely, Dr Donovan Tellez MD, [facility] - Urology Providers of Expert, Compassionate Care for the Genitourinary System Coding Level of Care Code Est Pt Level 4 (80363) Diagnoses Neurogenic urinary bladder disorder N31.9 CPT Codes Bladder/Catheter Procedure - CPT: 52224-Gfokppbzvz of Bladder ([id number]) Bladder/Catheter Procedure - CPT: 57669-Dkabns Bladder Catheter ([id number]) Cystoscopy - CPT: 43967-Cycvunjvyn ([id number]) Cystoscopy - CPT: DISPOSABLE SCOPE URO-G FLEXIBLE SCOPE ([id number])
== END 2023-01-11 10:41 | disposition home or self-care (01) ==
PROVIDERS: PCP Nurse Practitioner Community Health; Visit Provider Urology
DX: N31.9 Neuromuscular dysfunction of bladder, unspecified (principal)
CPT/HCPCS: 51700; 52000; 99499

== ENCOUNTER → 2023-01-11 09:32 | Outpatient (BNVA) | payer MEDICARE, MEDICAID, SELFPAY | PROVIDERS: PCP Nurse Practitioner Community Health; Visit Provider Urology | DX: N31.9 Neuromuscular dysfunction of bladder, unspecified (principal) | CPT/HCPCS: 51700; 52000; C1747 ==

== ENCOUNTER 2023-01-26 11:05 | Outpatient (AMB) | payer MEDICARE, MEDICAID, SELFPAY ==
--- NOTE | 2023-01-26 11:05 | MHC.OFFVIS ---
Intake Intake Visit Reasons: discuss details of procedure call [phone] Intake Note: Patient is present for Telephone Urology Med: finasteride, alfuzosin Antibiotic Allergy: none Blood Thinner: none [facility]acy: [facility] Allergies No Known Allergies Allergy (Verified 01/26/23 11:07) HPI HPI Comments History of Present Illness Details Jason is a pleasant male. He is accompanied by his brother. He seen for the following urologic conditions - neurogenic bladder Telemedicine Evaluation 15 min Consultation [employer] Maryjane Video attempted Discussion with Carole who is his sister and healthcare proxy (telephone [phone]) Discussed procedure He may need short to medium term care and a facility to manage the catheter She will look into this Current indwelling Mejias Recommendation for GreenLight laser prostate revision + suprapubic tube placement Neurogenic bladder Progressive Longstanding history of developmental delay Prior TURP a number of years ago [facility] Medical History Constipation Vitamin B12 deficiency Anxiety Gastroesophageal reflux disease Idiopathic gout Benign prostatic hyperplasia with lower urinary tract symptoms Developmental disability Impairment of cognitive function Diabetic renal disease Stage 2 chronic kidney disease Hyperlipidemia Essential hypertension Type 1 diabetes mellitus without complication, with long-term current use of insulin Coronary artery disease involving coronary bypass graft of [place] heart with angina pectoris Surgical History History of prostate surgery History of cholecystectomy Social History Alcohol intake: never Review of Systems Const All systems reviewed & are unremarkable except as noted in HPI and below Reports no additional complaints Resp Reports no additional complaints GI Reports no additional complaints Reports as per HPI Musc Reports no additional complaints Physical Exam Telemedicine evaluation Appropriate responses Regular breathing rate and rhythm HEENT Head: Yes normal to inspection Ears: hearing grossly normal bilaterally Eyes General: appearance normal, both eyes and all related structures Neck Neck: Yes normal visual inspection Chest Chest palpation & inspection: normal inspection of the chest Resp Effort & Inspection: normal respiratory effort and able to speak in complete sentences Assessment & Plan Assessment & Plan (1) Neurogenic urinary bladder disorder: Code(s): N31.9 - Neuromuscular dysfunction of bladder, unspecified Plan Risks, benefits and alternatives to therapy were discussed. These include but are not limited to infection, bleeding, damage to local organs and tissues, need for further interventions. Anesthetic risks regarding cardiac arrhythmia, blood clots, and potential mortality were discussed. The patient understands the typical recovery time and the outpatient nature of the procedure. After consideration of these risks the patient gives full informed consent and they wish to move ahead with the procedure. Cystoscopy with suprapubic tube placement Patient Instructions: Imaging studies, laboratory and physical exam results were discussed and reviewed in detail. No major barriers to patient understanding were identified. An opportunity to ask questions regarding the treatment plan was provided. All questions were answered. The patient expressed understanding and agreement with the above treatment plan. The patient is aware they should contact our office by phone for worsening of their current condition or the appearance of new urologic symptoms. Compliance is encouraged with any medications and followup testing that is ordered. It is a privilege to participate in the urologic care of your patient. If you have any questions or concerns regarding treatment for the above conditions, or other urologic issues, please do not hesitate to contact me. The office telephone contact is [phone]. This note is constructed using voice recognition software. While every effort has been made to ensure accuracy 3d artist errors may have been included. Yours sincerely, Dr Donovan Tellez MD, [facility] - Urology Providers of Expert, Compassionate Care for the Genitourinary System Telehealth Telehealth Location of provider rendering services: practice address Location of patient: address on file Patient Identification confirmed using: Name, : Yes Telehealth method: video Patient verbally consented to treatment: Yes Patient verbally consented to billing insurance company: Yes Patient informed of any privacy concerns related to visit: Yes Coding Level of Care Code Tele Est Pt Level 3 (70109) Diagnoses Neurogenic urinary bladder disorder N31.9
== END 2023-01-26 11:42 | disposition home or self-care (01) ==
LOC: HO.HUSH 11:05
PROVIDERS: PCP Nurse Practitioner Community Health; Visit Provider Urology
DX: N31.9 Neuromuscular dysfunction of bladder, unspecified (principal)
CPT/HCPCS: 99213

== ENCOUNTER → 2023-01-26 11:05 | Outpatient (BNVA) | payer MEDICARE, MEDICAID, SELFPAY | PROVIDERS: PCP Nurse Practitioner Community Health; Visit Provider Urology ==

== ENCOUNTER → 2023-03-14 09:49 | Outpatient (BNVA) | payer MEDICARE, MEDICAID, SELFPAY | PROVIDERS: PCP Nurse Practitioner Community Health; Visit Provider Urology | DX: N31.9 Neuromuscular dysfunction of bladder, unspecified (principal) | CPT/HCPCS: 51702 ==

== ENCOUNTER 2023-04-10 06:56 | Day surgery (SDC) | payer MEDICARE, MEDICAID, SELFPAY ==
[2023-04-04 09:34] VITALS: BMI 31.5
--- NOTE | 2023-04-04 14:25 | HO.ANESPROP2 ---
Documented by User: Yolanda Salinas NP 04/04/23 14:28 HPI - Anesthesia Eval Consult details Narrative: 78yo M for Laser Ablation Prostate w/Green Light, Insertion Suprapubic Tube Cardiac optimized (CABG 2008) FOR[facility]LY [facility], [facility] Active Problems Active Problems: All Active Problems (Updated 01/12/23 @ 15:33 by Donovan Tellez MD) Neurogenic urinary bladder disorder (Acute) Lower urinary tract symptoms (Acute) Weak urinary stream (Acute) Feeling of incomplete bladder emptying (Acute) Past Medical History Medical History Constipation Vitamin B12 deficiency Anxiety Gastroesophageal reflux disease Idiopathic gout Benign prostatic hyperplasia with lower urinary tract symptoms Developmental disability Impairment of cognitive function Diabetic renal disease Stage 2 chronic kidney disease Hyperlipidemia Essential hypertension Type 1 diabetes mellitus without complication, with long-term current use of insulin Coronary artery disease involving coronary bypass graft of [place] heart with angina pectoris Surgical History Surgical History History of prostate surgery History of cholecystectomy Social History Alcohol intake: never Advance Directives: No Advance Directives Information Provided: Yes Meds Allergies Allergy/AdvReac Type Severity Reaction Status Date / Time No Known Allergies Allergy Verified 01/26/23 11:07 Home Medications Medication Instructions Recorded Confirmed Last Taken Type amlodipine 2.5 mg tablet 2.5 mg PO QAM 11/08/22 Unknown History atorvastatin 40 mg tablet 40 mg PO DAILY 11/08/22 Unknown History cyanocobalamin (vitamin B-12) 1,000 mcg PO DAILY 11/08/22 Unknown History 1,000 mcg tablet (Vitamin B-12) escitalopram oxalate 20 mg tablet 20 mg PO DAILY 11/08/22 Unknown History finasteride 5 mg tablet 5 mg PO DAILY 11/08/22 Unknown History isosorbide mononitrate 120 mg 120 mg PO DAILY 11/08/22 Unknown History tablet,extended release 24 hr lisinopril 40 mg tablet 40 mg PO DAILY 11/08/22 Unknown History metformin 500 mg tablet 500 mg PO BID 11/08/22 Unknown History metoprolol succinate 200 mg 200 mg PO DAILY 11/08/22 Unknown History tablet,extended release 24 hr nitroglycerin 0.4 mg sublingual 0.4 mg sublingual DIRECTED 11/08/22 Unknown History tablet angina omeprazole 40 mg capsule,delayed 40 mg PO DAILY 11/08/22 Unknown History release Exam Height,Weight and Vital Signs: Height 6 ft Weight 105.233 kg Pertinent Lab Results Pertinent Lab Results: Laboratory Tests 01/06/23 16:27 WBC 12.4 H Hgb 13.8 L Hct 39.4 L Plt Count 200 Sodium 137 Potassium 4.5 Chloride 100 Carbon Dioxide 28 BUN 16 Creatinine 1.15 Narrative Narrative: EKG 12/2022 Vent. Rate : 057 BPM Atrial Rate : 057 BPM P-R Int : 212 ms QRS Dur : 112 ms QT Int : 488 ms P-R-T Axes : -10 080 033 degrees QTc Int : 474 ms Sinus bradycardia with 1st degree A-V block Incomplete left bundle branch block Borderline ECG No previous ECGs available Assessment and Plan Assessment Anesthesia Assessment: Chart Reviewed Documented by User: Adonis Mehta MD 04/10/23 07:26 [facility], [facility] Past Medical History Medical History Constipation Vitamin B12 deficiency Anxiety Gastroesophageal reflux disease Idiopathic gout Benign prostatic hyperplasia with lower urinary tract symptoms Developmental disability Impairment of cognitive function Diabetic renal disease Stage 2 chronic kidney disease Hyperlipidemia Essential hypertension Type 1 diabetes mellitus without complication, with long-term current use of insulin Coronary artery disease involving coronary bypass graft of [place] heart with angina pectoris Family History Family history of problems with anesthesia: No Surgical History Surgical History History of prostate surgery History of cholecystectomy History of Problems with Anesthesia: No Social History Alcohol intake: never Advance Directives: No Advance Directives Information Provided: Yes Meds Allergies Allergy/AdvReac Type Severity Reaction Status Date / Time No Known Allergies Allergy Verified 01/26/23 11:07 Home Medications Medication Instructions Recorded Confirmed Last Taken Type amlodipine 2.5 mg tablet 2.5 mg PO QAM 11/08/22 Unknown History atorvastatin 40 mg tablet 40 mg PO DAILY 11/08/22 Unknown History cyanocobalamin (vitamin B-12) 1,000 mcg PO DAILY 11/08/22 Unknown History 1,000 mcg tablet (Vitamin B-12) escitalopram oxalate 20 mg tablet 20 mg PO DAILY 11/08/22 Unknown History finasteride 5 mg tablet 5 mg PO DAILY 11/08/22 Unknown History isosorbide mononitrate 120 mg 120 mg PO DAILY 11/08/22 Unknown History tablet,extended release 24 hr lisinopril 40 mg tablet 40 mg PO DAILY 11/08/22 Unknown History metformin 500 mg tablet 500 mg PO BID 11/08/22 Unknown History metoprolol succinate 200 mg 200 mg PO DAILY 11/08/22 Unknown History tablet,extended release 24 hr nitroglycerin 0.4 mg sublingual 0.4 mg sublingual DIRECTED 11/08/22 Unknown History tablet angina omeprazole 40 mg capsule,delayed 40 mg PO DAILY 11/08/22 Unknown History release Exam Airway Mallampati Class: I TM Dist: >3cm Neck ROM: Full Denture: Upper and Lower Loose/Missing/Broken Teeth: No Heart: ok Lungs: ok Assessment and Plan Assessment Anesthesia Assessment: Anesthesia Plan Discussed Final Anesthetic Review Family History of Problems with Anesthesia: No History of Problems with Anesthesia: No NPO: Yes ASA Class: III Final Preanesthetic Review: No Changes in Pt Med Stat, Meds/Allgs Chart Reviewed, Consent Obtained/Reviewed and Anes Risks/Benef Reviewed Patient Risk: Intermediate Procedure Risk: Low Anesthetic Plan Anesthetic Plan: GA and Agree w/ Assess. and Plan Disposition: Standard PACU
[2023-04-10 07:21] VITALS: BMI 29.5
[2023-04-10 07:26] VITALS: BP 134/67; PULSE 56; RESP 18; TEMP 36.7; O2SAT 97; BMI 29.5
[2023-04-10] MEDS: Lactated Ringers 1,000 ML 100 ML IVCONT (07:35)
--- NOTE | 2023-04-10 07:40 | MHC.SHP ---
Pre-Procedural Eval Section A Date of Service: 04/10/23 The patient is an INPATIENT: No Changes since office visit: No Cold of Flu in the past 2 weeks, No New Medical Problems, No Changes in Medication and No Patient answered all questions The History & Physical has been completed within 30 days and I have reviewed it.: No Section B Chief Complaint: Benign prostatic hyperplasia with lower urinary tr Details of Present Illness: Neurogenic bladder with BPH Relevant Social History: None Present Medications: see Short Stay Collaborative assessment Medical History: No relevant PMH History of Previous Operations: No relevant previous surgery Allergies: Allergies Allergy/AdvReac Type Severity Reaction Status Date / Time No Known Allergies Allergy Verified 01/26/23 11:07 Review of Systems Sugical H&P ROS: Negative: Constitution, Cardiovascular, Respiratory, Neurological, Psychiatric, Hem-Onc, Allergic/Immunologic, Gastrointestinal, Genitourinary, Musculoskeletal, Integumentary, Endocrine and Eyes/Ears/Nose/Throat Exam Surgical H&P Exam: Normal: HEENT, Normal: Heart, Normal: Lungs, Normal: Extremities, Normal: Abdomen, Normal: Skin and Normal: Neurological Plan Diagnosis/Plan: Unchanged (cysto, greenlight laser, spt placement) I have reviewed the history and physical and performed a pertinent physical examination on my patient. No changes have occurred unless specified. Time Spent With Patient Time: Total time managing care of this patient today ____ minutes.
[2023-04-10 07:44] LABS: Glucose, Whole Blood 152 mg/dL (60-115)
[2023-04-10 08:44] VITALS: BP 117/56; PULSE 60; RESP 14; TEMP 36.2; O2SAT 93
[2023-04-10 08:49] VITALS: BP 122/55; PULSE 58; RESP 14; O2SAT 93
[2023-04-10 08:54] VITALS: BP 121/61; PULSE 59; RESP 14; O2SAT 93
--- NOTE | 2023-04-10 08:54 | W.PM.OPN ---
Operative Note Operative Note Date of Service: 04/10/23 Narrative: PreOperative Diagnosis:?neurogenic bladder Post Operative Diagnosis:?neurogenic bladder Procedure:? 1. Cystoscopy 2. Suprapubic tube placement 3. GreenLight laser prostate Surgeon: Dr Donovan Tellez Anesthesia:?LMA Indications for procedure: progressive neurogenic bladder with high residual. Prior TURP. Procedure: After informed consent was verified the patient was brought to the operating room and placed in a supine position.? Anesthesia was administered per protocol. The patient was placed in a modified dorsal lithotomy position and prepped and draped in a sterile fashion. A safety pause was performed confirming patient identity, procedure and antibiotics. A 22 Portuguese cystoscope was inserted per urethra. Bladder was examined in its entirety. No abnormalities seen. Air bubble was located at the dome of the bladder. A finder needle was inserted 2 fingerbreaths above the symphysis pubis on the abdomen into the bladder.? The needle was visualized in the bladder via cystoscopy. Local anesthetic was infiltrated subcutaneously around the needle introduction site. A small, 1cm horizontal incision was made.? A trocar introducer was advanced through the abdominal wall into the bladder under visualization. The obturator was removed and a 16 Fr murdock catheter placed. 7cc was used to inflate the balloon. The external portion of the trocar was removed. Following suprapubic tube placement laser procedure was performed on prostatic fossa. Relatively open neck following prior TURP many years ago. Mild lateral regrowth. Using GreenLight laser with settings of 80 w lateral tissue was removed and incisions taken from position all of ureteric orifice down to prostatic veru. Total energy used 5000 joules Once completed [address] 30 [address] Murdock catheter was placed per urethra. This was attached to a drainage bag. Suprapubic tube was capped. The patient tolerated the procedure and was transferred in stable condition to the recovery area. Suprapubic tube will be changed in 1 month with a follow-up office visit.
[2023-04-10 09:03] VITALS: BP 127/57; PULSE 59; RESP 14; O2SAT 93
[2023-04-10 09:18] VITALS: BP 130/65; PULSE 60; RESP 16; TEMP 36.3; O2SAT 95
== END 2023-04-10 10:13 | disposition home or self-care (01) ==
PROVIDERS: PCP Nurse Practitioner Community Health; Visit Provider Urology
PROC: (CPT 52648; principal; 2023-04-10 09:10)
PROC: (CPT 51102; 2023-04-10 09:10)
DX: N40.1 Benign prostatic hyperplasia with lower urinary tract symptoms (principal); R39.14 Feeling of incomplete bladder emptying; N31.9 Neuromuscular dysfunction of bladder, unspecified; R62.50 Unspecified lack of expected normal physiological development in childhood; G31.84 Mild cognitive impairment of uncertain or unknown etiology; E10.22 Type 1 diabetes mellitus with diabetic chronic kidney disease; I12.9 Hypertensive chronic kidney disease with stage 1 through stage 4 chronic kidney disease, or unspecified chronic kidney disease; N18.2 Chronic kidney disease, stage 2 (mild); Z79.4 Long term (current) use of insulin; E55.9 Vitamin D deficiency, unspecified; E78.5 Hyperlipidemia, unspecified; M10.00 Idiopathic gout, unspecified site; F41.9 Anxiety disorder, unspecified; Z87.891 Personal history of nicotine dependence; Z79.899 Other long term (current) drug therapy
CPT/HCPCS: 52648; 51102; 82947; J1956; J2704; J2795; J3010

== ENCOUNTER → 2023-04-10 06:56 | Outpatient (BNV) | payer MEDICARE, MEDICAID, SELFPAY | PROVIDERS: PCP Nurse Practitioner Community Health; Visit Provider Urology | DX: N40.1 Benign prostatic hyperplasia with lower urinary tract symptoms (principal); N13.9 Obstructive and reflux uropathy, unspecified | CPT/HCPCS: 51102; 52649 ==

== ENCOUNTER → 2023-04-13 09:50 | Outpatient (BNVA) | payer MEDICARE, MEDICAID, SELFPAY | PROVIDERS: PCP Nurse Practitioner Community Health; Visit Provider Urology ==

== ENCOUNTER 2023-05-05 09:00 | Outpatient (AMB) | payer MEDICARE, MEDICAID, SELFPAY ==
--- NOTE | 2023-05-05 09:22 | A.OFFVIS_ITS ---
Intake Intake Visit Reasons: cath change (first) Intake Note: Patient is Present for First Catheter change Urology Medication: Alfuzosin, Finasteride Antibiotic Allergies: none Blood Thinners: None Allergies No Known Allergies Allergy (Verified 05/05/23 09:30) Medication List - Last Reconciled 05/05/23 by Donovan Tellez MD alfuzosin ER 10 mg PO BEDTIME 30 days amlodipine 2.5 mg PO QAM atorvastatin 40 mg PO DAILY cyanocobalamin (vitamin B-12) (Vitamin B-12) 1,000 mcg PO DAILY escitalopram oxalate 20 mg PO DAILY finasteride 5 mg PO DAILY isosorbide mononitrate ER 120 mg PO DAILY lisinopril 40 mg PO DAILY metformin 500 mg PO BID metoprolol succinate ER 200 mg PO DAILY nitroglycerin 0.4 mg sublingual DIRECTED omeprazole 40 mg PO DAILY ranolazine ER 500 mg PO BID HPI HPI Comments History of Present Illness Details Jason is a pleasant male. He is accompanied by his brother. He seen for the following urologic conditions - neurogenic bladder Here for suprapubic tube exchange Performed today Discussion with Carole who is his sister and healthcare proxy (telephone [phone]) He may need short to medium term care and a facility to manage the catheter Neurogenic bladder Progressive Longstanding history of developmental delay Prior TURP a number of years ago [facility] Medical History Constipation Vitamin B12 deficiency Anxiety Gastroesophageal reflux disease Idiopathic gout Benign prostatic hyperplasia with lower urinary tract symptoms Developmental disability Impairment of cognitive function Diabetic renal disease Stage 2 chronic kidney disease Hyperlipidemia Essential hypertension Type 1 diabetes mellitus without complication, with long-term current use of insulin 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 Surgical History History of prostate surgery History of cholecystectomy Social History Alcohol intake: never Patient Tobacco Use Status: Former Tobacco user Review of Systems Const Denies chills and Denies fever(s) Card Reports no additional complaints and Denies syncope Resp Denies cough GI Denies abdominal pain and Denies heartburn Reports as per HPI and Denies change in libido Neuro Denies syncope Psych Denies change in libido Endo Denies change in libido Physical Exam Const General: cooperative, healthy appearing, comfortable and no acute distress Orientation/consciousness: patient oriented x3 HEENT Face and sinus: Yes normal facial exam Mouth: moist mucous membranes Neck Neck: Yes normal visual inspection, Yes full ROM and Yes trachea midline Chest Chest palpation & inspection: normal inspection of the chest Resp Effort & Inspection: normal respiratory effort, able to speak in complete sentences and no respiratory distress GI Inspection: Yes normal to inspection Back/Spine/Pelvis Cervical Spine: normal cervical lordosis Thoracic/Lumbar Spine: thoracic and lumbar spine normal to inspection Skin General skin exam: no rashes or lesions noted Neuro General: patient oriented x3, gait normal, tone normal and moves all extremities Extrem General: Yes normal to inspection and Yes capillary refill normal Assessment & Plan Assessment & Plan (1) Weak urinary stream: Code(s): R39.12 - Poor urinary stream (2) Neurogenic urinary bladder disorder: Code(s): N31.9 - Neuromuscular dysfunction of bladder, unspecified (3) Recurrent UTI: Code(s): N39.0 - Urinary tract infection, site not specified Plan Monthly follow-up suprapubic tube change Medications: New methenamine hippurate 1 g PO DAILY 90 tabs 1RF 90 days N31.9 - Neuromuscular dysfunction of bladder, unspecified, N39.0 - Urinary tract infection, site not specified ascorbic acid (vitamin C) 1 g PO DAILY 90 tabs 1RF 90 days N31.9 - Neuromuscular dysfunction of bladder, unspecified, N39.0 - Urinary tract infection, site not specified Discontinued sulfamethoxazole-trimethoprim 800-160 mg Discontinued Reason: Doctor's Order 1 tab orally on days of catheter change; 30 tabs 0RF Patient Instructions: Imaging studies, laboratory and physical exam results were discussed and reviewed in detail. No major barriers to patient understanding were identified. An opportunity to ask questions regarding the treatment plan was provided. All questions were answered. The patient expressed understanding and agreement with the above treatment plan. The patient is aware they should contact our office by phone for worsening of their current condition or the appearance of new urologic symptoms. Compliance is encouraged with any medications and followup testing that is ordered. It is a privilege to participate in the urologic care of your patient. If you have any questions or concerns regarding treatment for the above conditions, or other urologic issues, please do not hesitate to contact me. The office telephone contact is [phone]. This note is constructed using voice recognition software. While every effort has been made to ensure accuracy news videotape editor errors may have been included. Yours sincerely, Dr Donovan Tellez MD, [facility] - Urology Providers of Expert, Compassionate Care for the Genitourinary System Coding Level of Care Code Est Pt Level 3 (94301) Diagnoses Weak urinary stream R39.12 Neurogenic urinary bladder disorder N31.9 Recurrent UTI N39.0
== END 2023-05-05 10:11 | disposition home or self-care (01) ==
PROVIDERS: PCP Nurse Practitioner Community Health; Visit Provider Urology
DX: R39.12 Poor urinary stream (principal); N31.9 Neuromuscular dysfunction of bladder, unspecified; N39.0 Urinary tract infection, site not specified; Z96.0 Presence of urogenital implants
CPT/HCPCS: 51705; 99024

== ENCOUNTER → 2023-05-05 09:00 | Outpatient (BNVA) | payer MEDICARE, MEDICAID, SELFPAY | PROVIDERS: PCP Nurse Practitioner Community Health; Visit Provider Urology | DX: R39.12 Poor urinary stream (principal); N31.9 Neuromuscular dysfunction of bladder, unspecified; N39.0 Urinary tract infection, site not specified | CPT/HCPCS: 51705; 99212 ==

== ENCOUNTER 2023-11-16 14:40 | Outpatient (REF) | payer MEDICARE, MEDICAID, SELFPAY ==
[2023-11-16 14:50] LABS: Appearance Urine Clear; Color Urine Yellow; Glucose Urine UA Negative (Negative); Leukocyte Esterase Urine Large (3+) (Negative); Nitrite Urine Negative (Negative); Specific Gravity - Urine <= 1.005 (1.005-1.025); UMIC TRIGGER UACC YES; Urine Blood Negative (Negative); Urine Ketones Negative (Negative); Urine Protein Negative (Neg-Trace)
[2023-11-16 14:55] LABS: Bacteria Urine None Seen (None Seen); Hyaline Casts Urine 0-2 /LPF (0-2); RBC Urine 0-2 /HPF (0-2); Squamous Epithelial Cell Urine 0-2 /HPF (0-2); UACC Culture Trigger YES; WBC Urine 21-50 /HPF (0-5)
== END 2023-11-16 14:41 | disposition home or self-care (01) ==
LOC: HO.HVNA 14:40
PROVIDERS: Visit Provider Nurse Practitioner Community Health
DX: N39.0 Urinary tract infection, site not specified (principal)
CPT/HCPCS: 81001; 87086; 87088; 87186